=== PATIENT | female | born 1990 | race Caucasian/White ===

== ENCOUNTER 2018-10-29 16:29 | Emergency (ER) | payer OTHER ==
[2018-10-29 17:28] VITALS: BP 111/74; PULSE 97; TEMP 98.1; BMI 26.5
--- NOTE | 2018-10-29 20:09 | PDOC ---
History of Present Illness - General Chief Complaint: Injury Stated Complaint: ANCLE PAIN Time Seen by Provider: 10/29/18 17:30 - History of Present Illness Initial Comments: 10/29/18 20:06 28-year-old female without comorbidities presents for evaluation of left ankle pain. She states she was walking down the steps and twisted her ankle. She points to the medial aspect of her left ankle as the area of her discomfort. Past History - Past Medical History Allergies/Adverse Reactions: Allergies Allergy/AdvReac Type Severity Reaction Status Date / Time No Known Allergies Allergy Verified 10/29/18 17:28 Home Medications: Ambulatory Orders NK [No Known Home Medication] 10/29/18 COPD: No - Suicide/Smoking/Psychosocial Hx Smoking History: Never smoked Review of Systems - Review of Systems Musculoskeletal: Yes: Joint Pain *Physical Exam - Vital Signs Last Vital Signs Temp Pulse Resp BP Pulse Ox 98.1 F 97 H 18 111/74 98 10/29/18 17:26 10/29/18 17:26 10/29/18 17:26 10/29/18 17:26 10/29/18 17:26 - Physical Exam Comments: 10/29/18 20:06 Left ankle skin color and temperature are normal. Range of motion is full. There is no tenderness about the knee proximal fibula or along its distal coarse. No tenderness about the medial or lateral malleolus base of the fifth metatarsal. There is no tenderness about the deltoid. Mild tenderness about the navicular. No swelling. No gross sensorimotor deficits or indication of instability. She is neurovascularly intact. ED Treatment Course - RADIOLOGY Radiology Studies Ordered: Category Date Time Status ANKLE-LEFT [RAD] Stat Radiology 10/29/18 19:18 Taken Medical Decision Making - Medical Decision Making 10/29/18 20:07 No acute fracture trauma or destructive process on x-ray today. I will treat her with a Crawley wrap keep her nonweightbearing with crutches and have her follow-up with orthopedic *DC/Admit/Observation/Transfer Diagnosis at time of Disposition: Sprain of foot, left - Discharge Dispostion Disposition: HOME Condition at time of disposition: Stable Decision to Admit order: No - Referrals Referrals: Nathen Andrew MD [Primary Care Provider] - Edvin Washington DO [Staff Physician] - - Patient Instructions Printed Discharge Instructions: DI for Foot Sprain Additional Instructions: Remain nonweightbearing with the use of the Crawley wrap and crutches. Return to the emergency room for worsening symptoms. Tylenol Motrin as directed for pain. Please follow-up with orthopedic surgery in 1-2 days for further evaluation and treatment options. - Post Discharge Activity
== END 2018-10-29 20:15 | disposition home or self-care (01) ==
LOC: JERFT 16:29
PROC: 2W3RX1Z Immobilization of Left Lower Leg using Splint (ICD-10-PCS; principal; 2018-10-29)
DX: S93.402A Sprain of unspecified ligament of left ankle, initial encounter (principal); X50.1XXA Overexertion from prolonged static or awkward postures, initial encounter; Y93.01 Activity, walking, marching and hiking; Y92.89 Other specified places as the place of occurrence of the external cause; Y99.8 Other external cause status
CPT/HCPCS: 73610-TC-LT-FY; 99281-25